=== PATIENT | male | born 1985 | race African-American/Black ===

== ENCOUNTER 2016-09-29 15:20 | Emergency (ER) | payer OTHER ==
[~2016-09-29] VITALS: Ht 175.3 cm; Wt 86.3 kg
[2016-09-29] MEDS ORDERED: CLARITIN10 M3 PO (15:36)
[2016-09-29] MEDS ORDERED: QVAR 40 MCG IN7.3 GM IH (15:36)
[2016-09-29] MEDS ORDERED: VENTOLIN HFA18 GM IH (15:37)
[2016-09-29] MEDS ORDERED: CEPHALEXIN500 MG PO (15:38)
[2016-09-29] MEDS ORDERED: FISH OIL 1,0001 EAC7 PO (15:38)
[2016-09-29] MEDS ORDERED: TYLENOL WITH C1 EACH PO (15:39)
[2016-09-29 19:25] VITALS: BP 129/76
== END 2016-09-29 19:29 ==
LOC: EME 15:20
DX: S00.83XA Contusion of other part of head, initial encounter (principal); J45.909 Unspecified asthma, uncomplicated; Y04.0XXA Assault by unarmed brawl or fight, initial encounter; Y92.149 Unspecified place in prison as the place of occurrence of the external cause
CPT/HCPCS: 70450; 70486; 73130; 99281; 99284